=== PATIENT | female | born 1995 | race Caucasian/White ===

== ENCOUNTER 2022-01-08 11:58 | Emergency (ER) | payer OTHER ==
[2022-01-08 13:12] LABS: HEMOGLOBIN 13.9 gm/dl (12.3-15.3); RED BLOOD COUNT 4.41 M/UL (4.00-5.10); WHITE BLOOD COUNT 18.4 K/UL (4.5-11.0)
[2022-01-08 13:35] LABS: BUN/CREATININE RATIO 19 (0-10)
[2022-01-08] MEDS ORDERED: VANCOCIN HCL125 MG PO (18:03)
== END 2022-01-08 19:23 | disposition home or self-care (01) ==
LOC: ER1 11:58
PROVIDERS: Physician Assistant
DX: K52.9 Noninfective gastroenteritis and colitis, unspecified (principal)
CPT/HCPCS: 80053; 85025; 96374; 99284; J2405; Q9967